=== PATIENT | female | born 1940 | race Caucasian/White ===

== ENCOUNTER → 2017-11-02 | Emergency (ER) | payer OTHER ==
[~2017-11-02] VITALS: Ht 160 cm; Wt 79.4 kg
[~2017-11-02] MED LIST: ALBUTEROL1.25 MG/3; ATACAND HCT 321 EACH; CARDURA1 MG; NORVASC10 MG; PROTONIX40 MG; SINGULAIR 10MG10 MG; SYNTHROID100 MCG; XANAX0.25 MG; ZANTAC300 MG; ZOCOR5 MG
== END | disposition home or self-care (01) ==
LOC: ER 16:35
DX: J06.9 Acute upper respiratory infection, unspecified (principal); J11.1 Influenza due to unidentified influenza virus with other respiratory manifestations

== ENCOUNTER 2018-01-19 08:38 | Outpatient (CLI) | payer OTHER | END 2018-01-19 08:48 | disposition home or self-care (01) | LOC: LAB 08:38 | DX: I11.9 Hypertensive heart disease without heart failure (principal); R82.79 Other abnormal findings on microbiological examination of urine; E78.2 Mixed hyperlipidemia; N39.0 Urinary tract infection, site not specified; E03.8 Other specified hypothyroidism ==

== ENCOUNTER → 2018-03-07 10:08 | Outpatient (CLI) | payer OTHER | END | disposition home or self-care (01) | LOC: LAB 10:08 | DX: I10 Essential (primary) hypertension (principal); E78.00 Pure hypercholesterolemia, unspecified; E03.8 Other specified hypothyroidism ==

== ENCOUNTER 2018-06-10 11:41 | Outpatient (CLI) | payer OTHER | END 2018-06-10 11:42 | disposition home or self-care (01) | LOC: LAB 11:41 | DX: I11.9 Hypertensive heart disease without heart failure (principal); E03.8 Other specified hypothyroidism; E78.00 Pure hypercholesterolemia, unspecified ==

== ENCOUNTER 2018-06-10 13:17 | Outpatient (CLI) | payer OTHER | END 2018-06-10 14:00 | disposition home or self-care (01) | LOC: NUCLEAR 13:17 | DX: M81.0 Age-related osteoporosis without current pathological fracture (principal) ==

== ENCOUNTER 2018-06-10 14:29 | Outpatient (CLI) | payer OTHER | END 2018-06-10 17:00 | disposition home or self-care (01) | LOC: MAMO-SONO 14:29 → RAD 14:29 → MAMO-SONO 17:00 | DX: Z12.31 Encounter for screening mammogram for malignant neoplasm of breast (principal); Z87.898 Personal history of other specified conditions; N63.11 Unspecified lump in the right breast, upper outer quadrant; N64.4 Mastodynia; N63.14 Unspecified lump in the right breast, lower inner quadrant; J45.901 Unspecified asthma with (acute) exacerbation ==

== ENCOUNTER 2018-08-19 13:03 | Outpatient (CLI) | payer OTHER | END 2018-08-19 13:28 | disposition home or self-care (01) | LOC: RAD 13:03 → MRI 13:15 → RAD 13:28 | DX: M51.36 Other intervertebral disc degeneration, lumbar region (principal); M16.0 Bilateral primary osteoarthritis of hip; M17.0 Bilateral primary osteoarthritis of knee; M19.012 Primary osteoarthritis, left shoulder; M19.011 Primary osteoarthritis, right shoulder; S13.4XXA Sprain of ligaments of cervical spine, initial encounter; S33.8XXA Sprain of other parts of lumbar spine and pelvis, initial encounter | CPT/HCPCS: 72148 ==

== ENCOUNTER 2018-09-16 10:05 | Outpatient (CLI) | payer OTHER | END 2018-09-16 10:10 | disposition home or self-care (01) | LOC: LAB 10:05 | DX: I10 Essential (primary) hypertension (principal); E78.00 Pure hypercholesterolemia, unspecified; E03.8 Other specified hypothyroidism ==

== ENCOUNTER 2018-12-15 10:50 | Outpatient (CLI) | payer OTHER | END 2018-12-15 13:26 | disposition home or self-care (01) | LOC: LAB 10:50 | DX: E03.8 Other specified hypothyroidism (principal); E78.00 Pure hypercholesterolemia, unspecified; I10 Essential (primary) hypertension ==

== ENCOUNTER 2019-02-08 11:02 | Outpatient (CLI) | payer OTHER | END 2019-02-08 11:13 | disposition home or self-care (01) | LOC: LAB 11:02 | DX: E03.8 Other specified hypothyroidism (principal); I10 Essential (primary) hypertension; E78.00 Pure hypercholesterolemia, unspecified; J45.20 Mild intermittent asthma, uncomplicated ==

== ENCOUNTER → 2019-05-30 09:18 | Outpatient (CLI) | payer OTHER | END | disposition home or self-care (01) | LOC: LAB 09:18 | DX: E78.00 Pure hypercholesterolemia, unspecified (principal); I10 Essential (primary) hypertension; E03.8 Other specified hypothyroidism; N39.0 Urinary tract infection, site not specified ==

== ENCOUNTER → 2019-05-30 | Outpatient (CLI) | payer OTHER | END | disposition home or self-care (01) | LOC: MRI 09:15 | DX: M50.20 Other cervical disc displacement, unspecified cervical region (principal) | CPT/HCPCS: 72141 ==

== ENCOUNTER 2019-06-20 10:18 | Outpatient (CLI) | payer OTHER | END 2019-06-20 12:37 | disposition home or self-care (01) | LOC: SONOGRAMA 10:18 | DX: M75.102 Unspecified rotator cuff tear or rupture of left shoulder, not specified as traumatic (principal) ==

== ENCOUNTER 2019-08-08 08:33 | Outpatient (CLI) | payer OTHER | END 2019-08-08 08:42 | disposition home or self-care (01) | LOC: LAB 08:33 | DX: E03.8 Other specified hypothyroidism (principal); E78.00 Pure hypercholesterolemia, unspecified; I10 Essential (primary) hypertension; E55.9 Vitamin D deficiency, unspecified ==

== ENCOUNTER 2019-10-18 10:08 | Outpatient (CLI) | payer OTHER | END 2019-10-18 10:14 | disposition home or self-care (01) | LOC: LAB 10:08 | DX: E03.8 Other specified hypothyroidism (principal); N39.0 Urinary tract infection, site not specified; I10 Essential (primary) hypertension; E78.00 Pure hypercholesterolemia, unspecified; D50.0 Iron deficiency anemia secondary to blood loss (chronic) ==

== ENCOUNTER 2019-11-14 09:04 | Outpatient (CLI) | payer OTHER | END 2019-11-14 09:11 | disposition home or self-care (01) | LOC: LAB 09:04 | DX: E03.8 Other specified hypothyroidism (principal); I10 Essential (primary) hypertension; E78.00 Pure hypercholesterolemia, unspecified ==

== ENCOUNTER 2020-02-26 09:28 | Outpatient (CLI) | payer OTHER | END 2020-02-26 15:00 | disposition home or self-care (01) | LOC: LAB 09:28 | DX: I10 Essential (primary) hypertension (principal); E78.00 Pure hypercholesterolemia, unspecified ==

== ENCOUNTER 2020-02-26 11:27 | Outpatient (CLI) | payer OTHER | END 2020-02-26 16:47 | disposition home or self-care (01) | LOC: MAMO-SONO 11:27 | DX: Z12.31 Encounter for screening mammogram for malignant neoplasm of breast (principal); Z87.898 Personal history of other specified conditions; D24.9 Benign neoplasm of unspecified breast ==

== ENCOUNTER 2020-05-21 09:53 | Outpatient (CLI) | payer OTHER | END 2020-05-21 15:00 | disposition home or self-care (01) | LOC: LAB 09:53 | PROVIDERS: ATTEND Internal Medicine | DX: E03.8 Other specified hypothyroidism (principal); I10 Essential (primary) hypertension; E78.00 Pure hypercholesterolemia, unspecified ==

== ENCOUNTER 2020-06-11 12:54 | Outpatient (CLI) | payer OTHER | END 2020-06-11 12:59 | disposition home or self-care (01) | LOC: NUCLEAR 12:54 | PROVIDERS: ATTEND Internal Medicine | DX: M81.0 Age-related osteoporosis without current pathological fracture (principal) ==

== ENCOUNTER 2020-08-05 09:10 | Outpatient (CLI) | payer OTHER | END 2020-08-05 09:15 | disposition home or self-care (01) | LOC: LAB 09:10 | PROVIDERS: ATTEND Internal Medicine | DX: I10 Essential (primary) hypertension (principal); E11.9 Type 2 diabetes mellitus without complications; E78.00 Pure hypercholesterolemia, unspecified ==

== ENCOUNTER → 2020-09-02 | Outpatient (CLI) | payer OTHER | END | disposition home or self-care (01) | LOC: RAD 10:11 | DX: I70.0 Atherosclerosis of aorta (principal); R05 Cough ==

== ENCOUNTER 2021-01-01 09:37 | Outpatient (CLI) | payer OTHER | END 2021-01-01 09:42 | disposition home or self-care (01) | LOC: LAB 09:37 | PROVIDERS: ATTEND Internal Medicine | DX: N39.0 Urinary tract infection, site not specified (principal); E03.8 Other specified hypothyroidism; I10 Essential (primary) hypertension; E78.00 Pure hypercholesterolemia, unspecified ==

== ENCOUNTER → 2021-04-01 11:03 | Outpatient (CLI) | payer OTHER | END | disposition home or self-care (01) | LOC: LAB 11:03 | PROVIDERS: ATTEND Internal Medicine | DX: E03.9 Hypothyroidism, unspecified (principal); I10 Essential (primary) hypertension; E78.00 Pure hypercholesterolemia, unspecified ==

== ENCOUNTER → 2021-07-21 07:56 | Outpatient (CLI) | payer OTHER | END | disposition home or self-care (01) | LOC: LAB 07:56 | PROVIDERS: ATTEND Internal Medicine | DX: E03.8 Other specified hypothyroidism (principal); E78.00 Pure hypercholesterolemia, unspecified; R73.09 Other abnormal glucose ==

== ENCOUNTER 2021-07-24 10:45 | Outpatient (CLI) | payer OTHER | END 2021-07-24 11:02 | disposition home or self-care (01) | LOC: MAMO-SONO 10:45 | PROVIDERS: ATTEND Internal Medicine | DX: N64.59 Other signs and symptoms in breast (principal); Z12.31 Encounter for screening mammogram for malignant neoplasm of breast ==